=== PATIENT | male | born 1955 | race Caucasian/White ===

== ENCOUNTER 2016-10-02 13:41 | Emergency (ER) | payer OTHER ==
--- NOTE | 2016-10-02 14:05 | ED NURSING NOTES ---
Clinical Report - Nurses [facility] [place] [address] 10/02/2016 13:41 [id number] Triage time 13:51. Acuity: LEVEL 3. Chief Complaint: SKIN LESION, BOIL and TENDER AREA. --13:55 Tanisha Neal R.N. 13:50 10/02/16. BP: 184/91. HR: 82. RR: 16. O2 saturation: 97%. Temp: 98.2 F. Pain level now: 10/03. --13:58 Tanisha Neal R.N. Weight: 81.6 kg stated. Height/Length: 70 inches Per Patient. BMI: 25.8. --13:50 Tanisha Neal R.N. Medications None. --13:53 Tanisha Neal R.N. Allergies No Known Drug Allergy. --13:53 Tanisha Neal R.N. History Historian: patient. Primary physician (sintia). Reported as located on the genitalia and right wrist. It is described as painful. SOCIAL HX: Heavy tobacco smoker (cigarette)- 1 pack per day. No alcohol use or drug use. No infectious disease exposure. FALL RISK ASSESSMENT: Fall risk assessment completed. No fall risk identified. NUTRITIONAL RISK ASSESSMENT: The nutritional risk assessment revealed no deficiencies. FUNCTIONAL ASSESSMENT: Functional assessment: no impairments noted. LEARNING NEEDS ASSESSMENT: The learning needs assessment revealed no barriers. SKIN INTEGRITY ASSESSMENT: Skin integrity risk assessment completed. No skin integrity risk identified. --13:55 Tanisha Neal R.N. PROBLEMS: Hypertension. --13:54 Tanisha Neal R.N. ADDITIONAL SURGERIES: Appendectomy. Lt foot surg. Lt knee surg. Tonsillectomy & Adenoidectomy. Ulner nuerophathy surg Lt arm. --13:54 Tanisha Neal R.N. Interventions ID band on patient. To treatment room. --13:55 Tanisha Neal R.N. PHYSICAL ASSESSMENT Ambulatory to room. Patient gowned. GENERAL / NEURO / PSYCH: Alert. The patient does not appear to be in acute distress. Oriented X 4. HEENT: Pupils equal, round and reactive to light. Mucous membranes are pink. RESPIRATORY: Respirations not labored. Breath sounds within normal limits. CVS: Capillary refill less than 2 seconds. Pulses within normal limits. GI / : Abdomen nontender. SKIN: Multiple small bleeding skin lesions with erythema, tenderness and increased warmth on the genitalia and right wrist. Normal skin turgor. --14:06 Tanisha Neal R.N. NURSING PROGRESS NOTES Two patient identifiers checked. Call light placed in reach. Side rails up x 1. Bed placed in lowest position. Brakes of bed on. Patient ready for evaluation- ICING AND GLAZE MAKER notified. --14:06 Tanisha Neal R.N. 14:07 10/02/16. Microwave Radio Technician provided for the general and genital exam by the physician. ( several small reddened open areas around groin and under scrotum). --14:07 Tanisha Neal R.N. 14:18 10/02/2016 Keflex PO 500 mg (NOW) was refused by patient because of patient left already. Tanisha Neal --14:18 Tanisha Neal R.N. 14:18 10/02/2016 Bactrim DS PO (Tablet 800-160 mg) 1 tab (NOW) was refused by patient because of patient left already. Tanisha Neal --14:18 Tanisha Neal R.N. DISPOSITION / DISCHARGE 14:15 10/02/16. Condition at departure: unchanged. The goals identified in the patient's plan of care were met. No learning barriers present. Discharge instructions provided and reviewed with the patient. Reviewed medication(s). Prescription(s) given to the patient. Reviewed wound care and skin care instructions. Patient verbalized understanding. Written instructions provided in Vincentian. The patient was discharged by the nurse practitioner. He was discharged home and accompanied by spouse. He left the Emergency Department ambulatory and via private vehicle. Patient driving. --14:15 Tanisha Neal R.N. 14:13 10/02/16. BP: 184/91. HR: 82. RR: 16. O2 saturation: 97%. Temp: 98.2 F. Pain level now: 09/02. --14:15 Tanisha Neal R.N. Departure time: 1420. --14:15 Tanisha Neal R.N. Locked/Released at 10/02/2016 14:18 by Tanisha Neal R.N.
--- NOTE | 2016-10-02 14:05 | ED CLINICAL REPORT ---
Clinical Report - Physicians/Mid Levels [facility] [address] [place] [address] 10/02/2016 13:41 Patient: ETHAN WRAY Time Seen: 13:54 Oct 02 2016. Arrived- By private vehicle. Historian- patient. HISTORY OF PRESENT ILLNESS Chief Complaint: SKIN RASH and LESION. This started 3 - 4 days [employer] and is still present. It has been located on the right wrist. (Radial aspect of rest with area of small swallowing, erythema, 4 mm in nature, no fluctuance to this area. Full range of motion. No injury history. Possible insect bite. No pain with movement. No h/o mrsa. Pt denies fevers/ chills. Reports groin area rash for a few weeks, some drainage from a sore, reports he though it was jock itch, has been trying to keep area dry/ clean, applying powder cream otc.). REVIEW OF SYSTEMS No fever, chills or difficulty breathing. All systems otherwise negative, except as recorded above. PAST HISTORY Problems: Lymphadenitis. Immunizations. Hypertension. Additional Surgeries: Appendectomy. Lt foot surg. Lt knee surg. Tonsillectomy & Adenoidectomy. Ulner nuerophathy surg Lt arm. Medications: None. Allergies: No Known Drug Allergy. SOCIAL HISTORY Current every day heavy tobacco smoker. No alcohol use or drug use. ADDITIONAL NOTES The nursing notes have been reviewed. PHYSICAL EXAM Vital Signs: 10/02/2016 14:13 BP: 184/91. HR: 82. RR: 16. O2 saturation: 97%. Temp: 98.2 F. Pain level now: 3/10. Appearance: Alert. No acute distress. ENT: Ears normal. Nose normal. Neck: Neck supple. CVS: Normal heart rate and rhythm. Heart sounds normal. Respiratory: No respiratory distress. Breath sounds normal. : No scrotal swelling. (small lateral thigh lesion, and inferior to scrotum small lesion with mild erythema/ tenderness, no fluctulance. No vesicles.). Skin: Skin warm. Erythema. Cellulitis (right radial wrist, small lesion, no lymphagetic streaking, full rom). PROGRESS AND PROCEDURES Course of Care: Small area of erythema on the wrist, as well as the scrotum, concerning for cellulitis. No signs of abscess, no signs of mass. Patient very stable. NO signs of vesicles, warts. STable. To f/u outpatient. Patient is stable. Patient/family counseled. Disposition: Discharged. CLINICAL IMPRESSION Cellulitis of the left wrist. Irritative contact dermatitis (). INSTRUCTIONS Prescription Medications: Bactrim DS 800 mg / 160 mg: take 1 tablet orally every 12 hours for 10 days. No refill. Substitution is permissible. Keflex 500 mg: take 1 capsule orally every 8 hours for 10 days. No refill. Substitution is permissible. Follow-up: Follow up with your doctor in three days. Follow-up with: Chato Dejesus MD, [facility], , [facility], [address] [place] [address] Follow up. Call for the next available appointment. (Electronically signed by Letitia Delgado P.A.-C 10/02/2016 14:48)
--- NOTE | 2016-10-02 14:05 | ED NURSING NOTES ---
Clinical Report - Nurses [facility] [place] [address] 10/02/2016 13:41 [id number] Triage time 13:51. Acuity: LEVEL 3. Chief Complaint: SKIN LESION, BOIL and TENDER AREA. --13:55 Tanisha Neal R.N. 13:50 10/02/16. BP: 184/91. HR: 82. RR: 16. O2 saturation: 97%. Temp: 98.2 F. Pain level now: 10/03. --13:58 Tanisha Neal R.N. Weight: 81.6 kg stated. Height/Length: 70 inches Per Patient. BMI: 25.8. --13:50 Tanisha Neal R.N. Medications None. --13:53 Tanisha Neal R.N. Allergies No Known Drug Allergy. --13:53 Tanisha Neal R.N. History Historian: patient. Primary physician (sintia). Reported as located on the genitalia and right wrist. It is described as painful. SOCIAL HX: Heavy tobacco smoker (cigarette)- 1 pack per day. No alcohol use or drug use. No infectious disease exposure. FALL RISK ASSESSMENT: Fall risk assessment completed. No fall risk identified. NUTRITIONAL RISK ASSESSMENT: The nutritional risk assessment revealed no deficiencies. FUNCTIONAL ASSESSMENT: Functional assessment: no impairments noted. LEARNING NEEDS ASSESSMENT: The learning needs assessment revealed no barriers. SKIN INTEGRITY ASSESSMENT: Skin integrity risk assessment completed. No skin integrity risk identified. --13:55 Tanisha Neal R.N. PROBLEMS: Hypertension. --13:54 Tanisha Neal R.N. ADDITIONAL SURGERIES: Appendectomy. Lt foot surg. Lt knee surg. Tonsillectomy & Adenoidectomy. Ulner nuerophathy surg Lt arm. --13:54 Tanisha Neal R.N. Interventions ID band on patient. To treatment room. --13:55 Tanisha Neal R.N. PHYSICAL ASSESSMENT Ambulatory to room. Patient gowned. GENERAL / NEURO / PSYCH: Alert. The patient does not appear to be in acute distress. Oriented X 4. HEENT: Pupils equal, round and reactive to light. Mucous membranes are pink. RESPIRATORY: Respirations not labored. Breath sounds within normal limits. CVS: Capillary refill less than 2 seconds. Pulses within normal limits. GI / : Abdomen nontender. SKIN: Multiple small bleeding skin lesions with erythema, tenderness and increased warmth on the genitalia and right wrist. Normal skin turgor. --14:06 Tanisha Neal R.N. NURSING PROGRESS NOTES Two patient identifiers checked. Call light placed in reach. Side rails up x 1. Bed placed in lowest position. Brakes of bed on. Patient ready for evaluation- SUPERVISOR SLATE SPLITTING notified. --14:06 Tanisha Neal R.N. 14:07 10/02/16. Compliance Representative provided for the general and genital exam by the physician. ( several small reddened open areas around groin and under scrotum). --14:07 Tanisha Neal R.N. 14:18 10/02/2016 Keflex PO 500 mg (NOW) was refused by patient because of patient left already. Tanisha Neal --14:18 Tanisha Neal R.N. 14:18 10/02/2016 Bactrim DS PO (Tablet 800-160 mg) 1 tab (NOW) was refused by patient because of patient left already. Tanisha Neal --14:18 Tanisha Neal R.N. DISPOSITION / DISCHARGE 14:15 10/02/16. Condition at departure: unchanged. The goals identified in the patient's plan of care were met. No learning barriers present. Discharge instructions provided and reviewed with the patient. Reviewed medication(s). Prescription(s) given to the patient. Reviewed wound care and skin care instructions. Patient verbalized understanding. Written instructions provided in Turkmen. The patient was discharged by the nurse practitioner. He was discharged home and accompanied by spouse. He left the Emergency Department ambulatory and via private vehicle. Patient driving. --14:15 Tanisha Neal R.N. 14:13 10/02/16. BP: 184/91. HR: 82. RR: 16. O2 saturation: 97%. Temp: 98.2 F. Pain level now: 09/02. --14:15 Tanisha Neal R.N. Departure time: 1420. --14:15 Tanisha Neal R.N. Locked/Released at 10/02/2016 14:18 by Tanisha Neal R.N.
--- NOTE | 2016-10-02 14:05 | ED CLINICAL REPORT ---
Clinical Report - Physicians/Mid Levels [facility] [address] [place] [address] 10/02/2016 13:41 Patient: ETHAN WRAY Time Seen: 13:54 Oct 02 2016. Arrived- By private vehicle. Historian- patient. HISTORY OF PRESENT ILLNESS Chief Complaint: SKIN RASH and LESION. This started 3 - 4 days [employer]ACH[employer]PA[employer]IN[employer] and is still present. It has been located on the right wrist. (Radial aspect of rest with area of small swallowing, erythema, 4 mm in nature, no fluctuance to this area. Full range of motion. No injury history. Possible insect bite. No pain with movement. No h/o mrsa. Pt denies fevers/ chills. Reports groin area rash for a few weeks, some drainage from a sore, reports he though it was jock itch, has been trying to keep area dry/ clean, applying powder cream otc.). REVIEW OF SYSTEMS No fever, chills or difficulty breathing. All systems otherwise negative, except as recorded above. PAST HISTORY Problems: Lymphadenitis. Immunizations. Hypertension. Additional Surgeries: Appendectomy. Lt foot surg. Lt knee surg. Tonsillectomy & Adenoidectomy. Ulner nuerophathy surg Lt arm. Medications: None. Allergies: No Known Drug Allergy. SOCIAL HISTORY Current every day heavy tobacco smoker. No alcohol use or drug use. ADDITIONAL NOTES The nursing notes have been reviewed. PHYSICAL EXAM Vital Signs: 10/02/2016 14:13 BP: 184/91. HR: 82. RR: 16. O2 saturation: 97%. Temp: 98.2 F. Pain level now: 3/10. Appearance: Alert. No acute distress. ENT: Ears normal. Nose normal. Neck: Neck supple. CVS: Normal heart rate and rhythm. Heart sounds normal. Respiratory: No respiratory distress. Breath sounds normal. : No scrotal swelling. (small lateral thigh lesion, and inferior to scrotum small lesion with mild erythema/ tenderness, no fluctulance. No vesicles.). Skin: Skin warm. Erythema. Cellulitis (right radial wrist, small lesion, no lymphagetic streaking, full rom). PROGRESS AND PROCEDURES Course of Care: Small area of erythema on the wrist, as well as the scrotum, concerning for cellulitis. No signs of abscess, no signs of mass. Patient very stable. NO signs of vesicles, warts. STable. To f/u outpatient. Patient is stable. Patient/family counseled. Disposition: Discharged. CLINICAL IMPRESSION Cellulitis of the left wrist. Irritative contact dermatitis (). INSTRUCTIONS Prescription Medications: Bactrim DS 800 mg / 160 mg: take 1 tablet orally every 12 hours for 10 days. No refill. Substitution is permissible. Keflex 500 mg: take 1 capsule orally every 8 hours for 10 days. No refill. Substitution is permissible. Follow-up: Follow up with your doctor in three days. Follow-up with: Chato Dejesus MD, [facility], , [facility], [address] [place] [address] Follow up. Call for the next available appointment. (Electronically signed by Letitia Delgado P.A.-C 10/02/2016 14:48)
--- NOTE | 2016-10-02 14:05 | ED ORDER SUMMARY ---
..... Patient: ETHAN WRAY OrderSheet [facility] VisitID: [id number] [place] [address] 61y, M Registration Date/Time: 10/02/2016 ORDER SHEET Weight: 81.6 kg (stated) Allergies: No Known Drug Allergy GENERAL ORDERS: MEDICATION ORDERS: Keflex PO 500 mg (NOW) (14:04 10/02/2016 EKalexanderlemoise P.A.-C) (Ack 14:17 TChapman R.N.) Bactrim DS PO (Tablet 800-160 mg) 1 tab (NOW) (14:04 10/02/2016 Oswald P.A.-C) (Ack 14:17 TChapman R.N.) IV FLUIDS: ORDER SHEET NOTES: [Electronically signed by Tanisha Neal R.N. (14:18 10/02/2016)] [Electronically signed by Letitia Delgado P.A.-C (14:48 10/02/2016)] [Electronically locked/signed by Tanisha Neal R.N. (14:18 10/02/2016)]
--- NOTE | 2016-10-02 14:05 | ED ORDER SUMMARY ---
..... Patient: ETHAN WRAY OrderSheet [facility] VisitID: [id number] [place] [address] 61y, M Registration Date/Time: 10/02/2016 ORDER SHEET Weight: 81.6 kg (stated) Allergies: No Known Drug Allergy GENERAL ORDERS: MEDICATION ORDERS: Keflex PO 500 mg (NOW) (14:04 10/02/2016 EKalexanderlemoise P.A.-C) (Ack 14:17 TChapman R.N.) Bactrim DS PO (Tablet 800-160 mg) 1 tab (NOW) (14:04 10/02/2016 Oswald P.A.-C) (Ack 14:17 TChapman R.N.) IV FLUIDS: ORDER SHEET NOTES: [Electronically signed by Tanisha Neal R.N. (14:18 10/02/2016)] [Electronically signed by Letitia Delgado P.A.-C (14:48 10/02/2016)] [Electronically locked/signed by Tanisha Neal R.N. (14:18 10/02/2016)]
--- NOTE | 2016-10-02 14:48 | ED MED RECONCILIATION SUMMARY ---
Patient: ETHAN WRAY Medication Reconciliation Report [facility] VisitID: [id number] [address] [place] [address] 61y, M Registration Date/Time: 10/02/2016 Weight: 81.6 kg Height/Length: 70 in. BMI: 25.8 ALLERGIES: No Known Drug Allergy The patient's Home Medications are listed below: NONE. The source(s) of the original Home Medication information: Not obtained. The following Medications were given to the patient in the Emergency Department: None. The following Medications were prescribed to the patient: Bactrim DS 800 mg / 160 mg: take 1 tablet orally every 12 hours for 10 days. No refill. Substitution is permissible. -- Letitia Delgado, P.A.-Jay Keflex 500 mg: take 1 capsule orally every 8 hours for 10 days. No refill. Substitution is permissible. -- Letitia Delgado, P.A.-C
--- NOTE | 2016-10-02 14:48 | ED MAR SUMMARY ---
..... Medication Administration Record [facility] [address] [place], [place] [id number] Patient: ETHAN WRAY Visit ID: [id number] 61y, M Weight: 81.6 kg Height/Length: 70 in BMI: 25.8 ALLERGIES: No Known Drug Allergy
--- NOTE | 2016-10-02 14:48 | ED DISCHARGE INSTRUCTIONS ---
Patient: ETHAN WRAY General Instructions [facility] VisitID: [id number] [place] [address] 61y, M Registration Date/Time: 10/02/2016 Cellulitis of the left wrist. Irritative contact dermatitis (). INSTRUCTIONS Prescription Medications: Bactrim DS 800 mg / 160 mg: take 1 tablet orally every 12 hours for 10 days. No refill. Substitution is permissible. Keflex 500 mg: take 1 capsule orally every 8 hours for 10 days. No refill. Substitution is permissible. Follow-up: Follow up with your doctor in three days. Follow-up with: Chato Dejesus MD, [facility], , [facility], [address] [place] [address] Follow up. Call for the next available appointment. ADDITIONAL INFORMATION Cellulitis You have an infection of the skin known as cellulitis. This usually starts with a scrape, cut, insect bite, blister or other opening in the skin which becomes infected. This is a serious condition. It must be watched closely to be sure the infection is not spreading. With antibiotic treatment, the size of the red area will gradually shrink in size until the skin returns to normal. This will take 7-10 days. The red area should never increase in size once the antibiotic medicine has been started. Occasionally, an infection will be resistant to one antibiotic and another one will have to be used. Home Care: 1) Limit the use of the affected part, since excess movement can cause the infection to spread. 2) If the infection is on your leg, walk as little as possible during the first few days of the treatment. Keep your leg elevated while sitting. This will reduce swelling. 3) Take all of the antibiotic medicine exactly as directed until it is gone. Be careful not to miss any doses, especially during the first seven days. Follow Up with your doctor or this facility as directed. Check the infected area daily for the warning signs listed below. Get Prompt Medical Attention if any of the following occur: -- Spreading area of redness -- Increasing swelling or pain -- Appearance of pus or drainage -- Fever over 100.4 F (38.0 C) oral, or over 101.4 F (38.6 C) rectal, after two days on antibiotics Dermatitis (Non-Specific) Dermatitis is an inflammation of the skin. The exact cause of your rash is not certain. However, this rash does not appear to be an infection or contagious illness. Taking care of the rash at home should help relieve your symptoms. Home Care: Keep the areas of rash clean by washing it daily. This also helps to keep the skin moist. Use a neutral pH soap such as Dove or Lever 2000. Apply a moisturizing lotion after bathing to prevent dry skin. Avoid skin irritants (wool or silk clothing, grease, oils, some medicines, harsh soaps, and detergents). Wear absorbent, soft fabrics next to the skin rather than rough or scratchy materials. Unless another medicine was prescribed, you may use Hydrocortisone cream (which you can get without a prescription) to reduce the inflammation. Follow Up: Make an appointment with your doctor in the next 1 to 2 weeks if your symptoms do not improve with the above measures. Get Prompt Medical Attention if any of the following occur: Increasing area of redness or pain in the skin Yellow crusts or drainage from the rash Joint pain New rash that appears in other areas of the body Fever of 100.4F (38C) or higher, or as directed by your healthcare provider Sulfamethoxazole, Trimethoprim Oral tablet What is this medicine? SULFAMETHOXAZOLE; TRIMETHOPRIM or SMX-TMP (suhl fuh meth OK sergio zohl; trye METH oh prim) is a combination of a sulfonamide antibiotic and a second antibiotic, trimethoprim. It is used to treat or prevent certain kinds of bacterial infections. It will not work for colds, flu, or other viral infections. How should I use this medicine? Take this medicine by mouth with a full glass of water. Follow the directions on the prescription label. Take your medicine at regular intervals. Do not take it more often than directed. Do not skip doses or stop your medicine early. Talk to your strap buckler machine regarding the use of this medicine in children. Special care may be needed. This medicine has been used in children as young as 2 months of age. What side effects may I notice from receiving this medicine? Side effects that you should report to your doctor or health home care specialist as soon as possible: allergic reactions like skin rash or hives, swelling of the face, lips, or tongue breathing problems fever or chills, sore throat irregular heartbeat, chest pain joint or muscle pain pain or difficulty passing urine red pinpoint spots on skin redness, blistering, peeling or loosening of the skin, including inside the mouth unusual bleeding or bruising unusually weak or tired yellowing of the eyes or skin Side effects that usually do not require medical attention (report to your doctor or health home care specialist if they continue or are bothersome): diarrhea dizziness headache loss of appetite nausea, vomiting nervousness What may interact with this medicine? Do not take this medicine with any of the following medications: aminobenzoate potassium dofetilide metronidazole This medicine may also interact with the following medications: VERO inhibitors like benazepril, enalapril, lisinopril, and ramipril cyclosporine digoxin diuretics indomethacin medicines for diabetes methenamine methotrexate phenytoin potassium supplements pyrimethamine sulfinpyrazone tricyclic antidepressants warfarin What if I miss a dose? If you miss a dose, take it as soon as you can. If it is almost time for your next dose, take only that dose. Do not take double or extra doses. Where should I keep my medicine? Keep out of the reach of children. Store at room temperature between 20 to 25 degrees C (68 to 77 degrees F). Protect from light. Throw away any unused medicine after the expiration date. What should I tell my health care provider before I take this medicine? They need to know if you have any of these conditions: anemia asthma being treated with anticonvulsants if you frequently drink alcohol containing drinks kidney disease liver disease low level of folic acid or jiuspbk-[id number]-oekwjodvr dehydrogenase poor nutrition or malabsorption porphyria severe allergies thyroid disorder an unusual or allergic reaction to sulfamethoxazole, trimethoprim, sulfa drugs, other medicines, foods, dyes, or preservatives or trying to get breast-feeding What should I watch for while using this medicine? Tell your doctor or health home care specialist if your symptoms do not improve. Drink several glasses of water a day to reduce the risk of kidney problems. Do not treat diarrhea with over the counter products. Contact your doctor if you have diarrhea that lasts more than 2 days or if it is severe and watery. This medicine can make you more sensitive to the sun. Keep out of the sun. If you cannot avoid being in the sun, wear protective clothing and use a sunscreen. Do not use sun lamps or tanning beds/booths. Cephalexin Monohydrate Oral tablet What is this medicine? CEPHALEXIN (sef a MARIBEL in) is a cephalosporin antibiotic. It is used to treat certain kinds of bacterial infections It will not work for colds, flu, or other viral infections. How should I use this medicine? Take this medicine by mouth with a full glass of water. Follow the directions on the prescription label. This medicine can be taken with or without food. Take your medicine at regular intervals. Do not take your medicine more often than directed. Take all of your medicine as directed even if you think you are better. Do not skip doses or stop your medicine early. Talk to your strap buckler machine regarding the use of this medicine in children. While this drug may be prescribed for selected conditions, precautions do apply. What side effects may I notice from receiving this medicine? Side effects that you should report to your doctor or health home care specialist as soon as possible: allergic reactions like skin rash, itching or hives, swelling of the face, lips, or tongue breathing problems pain or trouble passing urine redness, blistering, peeling or loosening of the skin, including inside the mouth severe or watery diarrhea unusually weak or tired yellowing of the eyes, skin Side effects that usually do not require medical attention (report to your doctor or health home care specialist if they continue or are bothersome): gas or heartburn genital or anal irritation headache joint or muscle pain nausea, vomiting What may interact with this medicine? probenecid some other antibiotics What if I miss a dose? If you miss a dose, take it as soon as you can. If it is almost time for your next dose, take only that dose. Do not take double or extra doses. There should be at least 4 to 6 hours between doses. Where should I keep my medicine? Keep out of the reach of children. Store at room temperature between 59 and 86 degrees F (15 and 30 degrees C). Throw away any unused medicine after the expiration date. What should I tell my health care provider before I take this medicine? They need to know if you have any of these conditions: kidney disease stomach or intestine problems, especially colitis an unusual or allergic reaction to cephalexin, other cephalosporins, penicillins, other antibiotics, medicines, foods, dyes or preservatives or trying to get breast-feeding What should I watch for while using this medicine? Tell your doctor or health home care specialist if your symptoms do not begin to improve in a few days. Do not treat diarrhea with over the counter products. Contact your doctor if you have diarrhea that lasts more than 2 days or if it is severe and watery. If you have diabetes, you may get a false-positive result for sugar in your urine. Check with your doctor or health home care specialist. You have been given the following additional information: Cellulitis Dermatitis, Non-Specific Sulfamethoxazole, Trimethoprim Oral tablet Cephalexin Monohydrate Oral tablet (Electronically signed by Letitia Delgado P.A.-C 10/02/2016 14:48)
--- NOTE | 2016-10-02 14:48 | ED DISCHARGE INSTRUCTIONS ---
Patient: ETHAN WRAY General Instructions [facility] VisitID: [id number] [place] [address] 61y, M Registration Date/Time: 10/02/2016 Cellulitis of the left wrist. Irritative contact dermatitis (). INSTRUCTIONS Prescription Medications: Bactrim DS 800 mg / 160 mg: take 1 tablet orally every 12 hours for 10 days. No refill. Substitution is permissible. Keflex 500 mg: take 1 capsule orally every 8 hours for 10 days. No refill. Substitution is permissible. Follow-up: Follow up with your doctor in three days. Follow-up with: Chato Dejesus MD, [facility], , [facility], [address] [place] [address] Follow up. Call for the next available appointment. ADDITIONAL INFORMATION Cellulitis You have an infection of the skin known as cellulitis. This usually starts with a scrape, cut, insect bite, blister or other opening in the skin which becomes infected. This is a serious condition. It must be watched closely to be sure the infection is not spreading. With antibiotic treatment, the size of the red area will gradually shrink in size until the skin returns to normal. This will take 7-10 days. The red area should never increase in size once the antibiotic medicine has been started. Occasionally, an infection will be resistant to one antibiotic and another one will have to be used. Home Care: 1) Limit the use of the affected part, since excess movement can cause the infection to spread. 2) If the infection is on your leg, walk as little as possible during the first few days of the treatment. Keep your leg elevated while sitting. This will reduce swelling. 3) Take all of the antibiotic medicine exactly as directed until it is gone. Be careful not to miss any doses, especially during the first seven days. Follow Up with your doctor or this facility as directed. Check the infected area daily for the warning signs listed below. Get Prompt Medical Attention if any of the following occur: -- Spreading area of redness -- Increasing swelling or pain -- Appearance of pus or drainage -- Fever over 100.4 F (38.0 C) oral, or over 101.4 F (38.6 C) rectal, after two days on antibiotics Dermatitis (Non-Specific) Dermatitis is an inflammation of the skin. The exact cause of your rash is not certain. However, this rash does not appear to be an infection or contagious illness. Taking care of the rash at home should help relieve your symptoms. Home Care: Keep the areas of rash clean by washing it daily. This also helps to keep the skin moist. Use a neutral pH soap such as Dove or Lever 2000. Apply a moisturizing lotion after bathing to prevent dry skin. Avoid skin irritants (wool or silk clothing, grease, oils, some medicines, harsh soaps, and detergents). Wear absorbent, soft fabrics next to the skin rather than rough or scratchy materials. Unless another medicine was prescribed, you may use Hydrocortisone cream (which you can get without a prescription) to reduce the inflammation. Follow Up: Make an appointment with your doctor in the next 1 to 2 weeks if your symptoms do not improve with the above measures. Get Prompt Medical Attention if any of the following occur: Increasing area of redness or pain in the skin Yellow crusts or drainage from the rash Joint pain New rash that appears in other areas of the body Fever of 100.4F (38C) or higher, or as directed by your healthcare provider Sulfamethoxazole, Trimethoprim Oral tablet What is this medicine? SULFAMETHOXAZOLE; TRIMETHOPRIM or SMX-TMP (suhl fuh meth OK sergio zohl; trye METH oh prim) is a combination of a sulfonamide antibiotic and a second antibiotic, trimethoprim. It is used to treat or prevent certain kinds of bacterial infections. It will not work for colds, flu, or other viral infections. How should I use this medicine? Take this medicine by mouth with a full glass of water. Follow the directions on the prescription label. Take your medicine at regular intervals. Do not take it more often than directed. Do not skip doses or stop your medicine early. Talk to your motion picture projectionist regarding the use of this medicine in children. Special care may be needed. This medicine has been used in children as young as 2 months of age. What side effects may I notice from receiving this medicine? Side effects that you should report to your doctor or health career law clerk as soon as possible: allergic reactions like skin rash or hives, swelling of the face, lips, or tongue breathing problems fever or chills, sore throat irregular heartbeat, chest pain joint or muscle pain pain or difficulty passing urine red pinpoint spots on skin redness, blistering, peeling or loosening of the skin, including inside the mouth unusual bleeding or bruising unusually weak or tired yellowing of the eyes or skin Side effects that usually do not require medical attention (report to your doctor or health career law clerk if they continue or are bothersome): diarrhea dizziness headache loss of appetite nausea, vomiting nervousness What may interact with this medicine? Do not take this medicine with any of the following medications: aminobenzoate potassium dofetilide metronidazole This medicine may also interact with the following medications: VERO inhibitors like benazepril, enalapril, lisinopril, and ramipril cyclosporine digoxin diuretics indomethacin medicines for diabetes methenamine methotrexate phenytoin potassium supplements pyrimethamine sulfinpyrazone tricyclic antidepressants warfarin What if I miss a dose? If you miss a dose, take it as soon as you can. If it is almost time for your next dose, take only that dose. Do not take double or extra doses. Where should I keep my medicine? Keep out of the reach of children. Store at room temperature between 20 to 25 degrees C (68 to 77 degrees F). Protect from light. Throw away any unused medicine after the expiration date. What should I tell my health care provider before I take this medicine? They need to know if you have any of these conditions: anemia asthma being treated with anticonvulsants if you frequently drink alcohol containing drinks kidney disease liver disease low level of folic acid or sexbpir-1-avmwtelxh dehydrogenase poor nutrition or malabsorption porphyria severe allergies thyroid disorder an unusual or allergic reaction to sulfamethoxazole, trimethoprim, sulfa drugs, other medicines, foods, dyes, or preservatives or trying to get breast-feeding What should I watch for while using this medicine? Tell your doctor or health career law clerk if your symptoms do not improve. Drink several glasses of water a day to reduce the risk of kidney problems. Do not treat diarrhea with over the counter products. Contact your doctor if you have diarrhea that lasts more than 2 days or if it is severe and watery. This medicine can make you more sensitive to the sun. Keep out of the sun. If you cannot avoid being in the sun, wear protective clothing and use a sunscreen. Do not use sun lamps or tanning beds/booths. Cephalexin Monohydrate Oral tablet What is this medicine? CEPHALEXIN (sef a MARIBEL in) is a cephalosporin antibiotic. It is used to treat certain kinds of bacterial infections It will not work for colds, flu, or other viral infections. How should I use this medicine? Take this medicine by mouth with a full glass of water. Follow the directions on the prescription label. This medicine can be taken with or without food. Take your medicine at regular intervals. Do not take your medicine more often than directed. Take all of your medicine as directed even if you think you are better. Do not skip doses or stop your medicine early. Talk to your motion picture projectionist regarding the use of this medicine in children. While this drug may be prescribed for selected conditions, precautions do apply. What side effects may I notice from receiving this medicine? Side effects that you should report to your doctor or health career law clerk as soon as possible: allergic reactions like skin rash, itching or hives, swelling of the face, lips, or tongue breathing problems pain or trouble passing urine redness, blistering, peeling or loosening of the skin, including inside the mouth severe or watery diarrhea unusually weak or tired yellowing of the eyes, skin Side effects that usually do not require medical attention (report to your doctor or health career law clerk if they continue or are bothersome): gas or heartburn genital or anal irritation headache joint or muscle pain nausea, vomiting What may interact with this medicine? probenecid some other antibiotics What if I miss a dose? If you miss a dose, take it as soon as you can. If it is almost time for your next dose, take only that dose. Do not take double or extra doses. There should be at least 4 to 6 hours between doses. Where should I keep my medicine? Keep out of the reach of children. Store at room temperature between 59 and 86 degrees F (15 and 30 degrees C). Throw away any unused medicine after the expiration date. What should I tell my health care provider before I take this medicine? They need to know if you have any of these conditions: kidney disease stomach or intestine problems, especially colitis an unusual or allergic reaction to cephalexin, other cephalosporins, penicillins, other antibiotics, medicines, foods, dyes or preservatives or trying to get breast-feeding What should I watch for while using this medicine? Tell your doctor or health career law clerk if your symptoms do not begin to improve in a few days. Do not treat diarrhea with over the counter products. Contact your doctor if you have diarrhea that lasts more than 2 days or if it is severe and watery. If you have diabetes, you may get a false-positive result for sugar in your urine. Check with your doctor or health career law clerk. You have been given the following additional information: Cellulitis Dermatitis, Non-Specific Sulfamethoxazole, Trimethoprim Oral tablet Cephalexin Monohydrate Oral tablet (Electronically signed by Letitia Delgado P.A.-C 10/02/2016 14:48)
--- NOTE | 2016-10-02 14:48 | ED MED RECONCILIATION SUMMARY ---
Patient: ETHAN WRAY Medication Reconciliation Report [facility] VisitID: [id number] [address] [place] [address] 61y, M Registration Date/Time: 10/02/2016 Weight: 81.6 kg Height/Length: 70 in. BMI: 25.8 ALLERGIES: No Known Drug Allergy The patient's Home Medications are listed below: NONE. The source(s) of the original Home Medication information: Not obtained. The following Medications were given to the patient in the Emergency Department: None. The following Medications were prescribed to the patient: Bactrim DS 800 mg / 160 mg: take 1 tablet orally every 12 hours for 10 days. No refill. Substitution is permissible. -- Letitia Delgado, P.A.-Jay Keflex 500 mg: take 1 capsule orally every 8 hours for 10 days. No refill. Substitution is permissible. -- Letitia Delgado, P.A.-C
--- NOTE | 2016-10-02 14:48 | ED MAR SUMMARY ---
..... Medication Administration Record [facility] [address] [place], [place] [id number] Patient: ETHAN WRAY Visit ID: [id number] 61y, M Weight: 81.6 kg Height/Length: 70 in BMI: 25.8 ALLERGIES: No Known Drug Allergy
== END 2016-10-02 14:20 | disposition home or self-care (01) ==
LOC: ED SRH 13:41
DX: L03.114 Cellulitis of left upper limb (principal); L24.9 Irritant contact dermatitis, unspecified cause; I10 Essential (primary) hypertension; F17.210 Nicotine dependence, cigarettes, uncomplicated